=== PATIENT | female | born 1935 | race Caucasian/White ===

== ENCOUNTER 2017-05-10 19:42 | Emergency (ER) | payer OTHER ==
[~2017-05-10] VITALS: Ht 149.9 cm; Wt 58.0 kg
[2017-05-10 20:29] VITALS: Ht 149.9 cm; Wt 58.0 kg
[2017-05-10 22:26] LABS: BASOPHIL % 0.3 % (0-2); PLATELET COUNT 256 x10^3mcL (130-400); RED CELL DISTRIBUTION WIDTH 14.1 % (11.5-14.5)
[2017-05-10 22:49] LABS: CALCIUM 8.8 mg/dL (8.5-10.1); CARBON DIOXIDE 24.7 mmol/L (21-32); CHLORIDE SERUM 107 mmol/L (98-107); GLUCOSE SERUM 95 mg/dL (74-106); SODIUM SERUM 142 mmol/L (136-145)
[2017-05-10 22:58] LABS: T3 TOTAL 0.79 ng/mL
[2017-05-10 23:00] LABS: ALBUMIN 3.5 g/dL (3.4-5.0); ALKALINE PHOSPHATASE 90 U/L (46-116); ALT/SGPT 10 U/L (14-59); AST/SGOT 12 U/L (15-37); BILIRUBIN TOTAL 0.2 mg/dL (0.20-1.00); CHOLESTEROL 179 mg/dL (<200); CHOLESTEROL/HDL RATIO 4.1; HDL CHOLESTEROL 44 mg/dL (40-60); TOTAL PROTEIN, SERUM 7.4 g/dL (6.4-8.2); TRIGLYCERIDES 158 mg/dL (<150)
[2017-05-10 23:26] LABS: FREE T4 1.07 ng/dL (0.76-1.46); FREE THYROXINE INDEX 2.2 ug/dL (1.4-4.5); T4(THYROXINE) 6.3 ug/dL (4.7-13.3)
[2017-05-11 01:02] VITALS: BP 180/78
== END 2017-05-11 01:02 | disposition home or self-care (01) ==
LOC: ED 19:42
PROVIDERS: Emergency Medicine
DX: F03.90 Unspecified dementia, unspecified severity, without behavioral disturbance, psychotic disturbance, mood disturbance, and anxiety (principal); E86.0 Dehydration; I10 Essential (primary) hypertension
CPT/HCPCS: 36415; 83880; 84439; 87804; Q0092

== ENCOUNTER 2018-08-21 14:59 | Observation (INO) | payer OTHER | END 2018-08-22 21:37 | disposition short-term general hospital (02) | LOC: ED 14:59 → DU 17:39 → ED 14:59 → MU 08-22 14:49 → ED 14:59 → MU 08-22 14:49 → ED 14:59 → MU 08-22 14:57 → ED 14:59 → MU 08-22 21:37 → ED 14:59 → DU 17:39 ==